=== PATIENT | male | born 2000 | race Caucasian/White ===

== ENCOUNTER 2021-09-07 23:17 | Emergency (ER) | payer OTHER ==
[2021-09-08] MEDS ORDERED: IBUPROFEN 600 MG TAB PO ONE (05:41)
[2021-09-08] MEDS ORDERED: LIDOCAINE-MPF (1%) 10 MG/1 ML VIAL 5 ML INFILTRATI ONE (05:41)
[2021-09-08] MEDS ORDERED: SULFAMETHOXAZOLE/TRIMETHOPRIM 800/160MG DS TAB PO ONE (05:41)
--- NOTE | 2021-09-08 06:44 | Emergency Department Report ---
ED General Adult HPI - General Chief complaint: Pain General Stated complaint: NIPPLE PIERCING COMPLICATIONS Source: patient Mode of arrival: Ambulatory Limitations: No Limitations - History of Present Illness Initial comments: Patient is a 20-year-old male with no past medical history presents to the ED with complaint of acute onset persistent pain. Mildly swollen mild erythematous maculopapular rash on left nipple due to the presence of an embedded metallic nipple ring that has been present for 4 months. Patient states that he tried to remove the nipple ring with no success, resulting in the presence of the metallic body still in the left). Patient states the pain the swelling is worsened. Patient denies fever, chills, nausea and vomiting, dizziness, syncope, chest pain or shortness of breath. MD Complaint: left nipple foreign body -: Gradual, month(s) (4) Location: chest (left breast nipple) Radiation: non-radiation Severity scale (0 -10): 9 Quality: aching, sharp Consistency: constant Improves with: none Worsens with: none Associated Symptoms: denies other symptoms, rash (Mild erythematous rash on the left nipple due to a metallic nipple ring stuck in the). denies: confusion, chest pain, cough, fever/chills, headaches, loss of appetite, malaise, nausea/vomiting, seizure, shortness of breath, syncope, weakness Treatments Prior to Arrival: none - Related Data Previous Rx's Medication Instructions Recorded Last Taken Type Ibuprofen [Motrin] 800 mg PO Q8HR PRN #30 tablet 09/08/21 Unknown Rx Sulfamethoxazole/Trimethoprim 1 each PO Q12H #20 tab 09/08/21 Unknown Rx [Bactrim DS TAB] Allergies Allergy/AdvReac Type Severity Reaction Status Date / Time No Known Allergies Allergy Unverified 09/08/21 00:07 ED Review of Systems ROS: Stated complaint: NIPPLE PIERCING COMPLICATIONS Other details as noted in HPI Constitutional: denies: chills, fever Eyes: denies: eye pain, eye discharge, vision change ENT: denies: ear pain, throat pain Respiratory: other (Left wrist pain due to a metallic foreign body embedded with swelling, purulent discharge). denies: cough, shortness of breath, wheezing Cardiovascular: denies: chest pain, palpitations Endocrine: no symptoms reported Gastrointestinal: denies: abdominal pain, nausea, vomiting, diarrhea Genitourinary: denies: urgency, dysuria Musculoskeletal: denies: back pain, joint swelling, arthralgia Skin: rash (Mild erythematous left nipple due to embedded metallic foreign body with purulent discharge), change in color. denies: lesions Neurological: denies: headache, weakness, paresthesias Psychiatric: denies: anxiety, depression Hematological/Lymphatic: denies: easy bleeding, easy bruising ED Past Medical Hx - Medications Home Medications: Home Medications Medication Instructions Recorded Confirmed Last Taken Type Ibuprofen [Motrin] 800 mg PO Q8HR PRN #30 tablet 09/08/21 Unknown Rx Sulfamethoxazole/Trimethoprim 1 each PO Q12H #20 tab 09/08/21 Unknown Rx [Bactrim DS TAB] ED Physical Exam - General Limitations: No Limitations General appearance: alert, in no apparent distress - Head Head exam: Present: atraumatic, normocephalic, normal inspection - Eye Eye exam: Present: normal appearance, PERRL, EOMI Pupils: Present: normal accommodation - ENT ENT exam: Present: normal exam, normal orophraynx, mucous membranes moist, TM's normal bilaterally, normal external ear exam - Neck Neck exam: Present: normal inspection, full ROM. Absent: tenderness - Respiratory Respiratory exam: Present: normal lung sounds bilaterally, chest wall tenderness (Palpable left nipple tenderness due to mild erythematous rash and purulent discharge due to a foreign metallic body embedded in the nipple). Absent: respiratory distress, wheezes, rales, stridor, accessory muscle use, decreased breath sounds, prolonged expiratory - Cardiovascular Cardiovascular Exam: Present: regular rate, normal rhythm, normal heart sounds. Absent: systolic murmur, diastolic murmur, rubs, gallop - GI/Abdominal GI/Abdominal exam: Present: soft, normal bowel sounds. Absent: distended, tenderness, guarding, rebound, hyperactive bowel sounds, hypoactive bowel sounds, organomegaly - Extremities Exam Extremities exam: Present: normal inspection, full ROM, normal capillary refill. Absent: tenderness - Back Exam Back exam: Present: normal inspection, full ROM. Absent: tenderness, CVA tenderness (R), CVA tenderness (L), muscle spasm, paraspinal tenderness - Neurological Exam Neurological exam: Present: alert, oriented X3, CN II-XII intact, normal gait, reflexes normal - Psychiatric Psychiatric exam: Present: normal affect, normal mood - Skin Skin exam: Present: warm, dry, intact, normal color, rash (Mildly erythematous maculopapular rash with purulent discharge on left nipple due to a metallic foreign body embedded in the left nipple), erythema ED Course Vital Signs 09/08/21 09/08/21 00:05 05:52 Temperature 98.6 F Pulse Rate 62 Respiratory 16 16 Rate Blood Pressure 137/87 [Right] O2 Sat by Pulse 99 Oximetry - Procedure Description Procedures done: Foreign body removal from left nipple: - The left nipple was cleaned extensively normal saline and Betadine solutions, and 1% lidocaine solution was used as a local anesthetic. When anesthesia was fully achieved, the foreign body was removed with tweezers and hemostats. Patient tolerated the procedure well. The wound was then cleaned with normal saline and dressed appropriately with 4 x 4 and Tegaderm. ED Medical Decision Making - Medical Decision Making This is a 20-year-old male with no past medical history presents to the ED with complaint of acute onset persistent pain. Mildly swollen mild erythematous maculopapular rash on left nipple due to the presence of an embedded metallic nipple ring that has been present for 4 months. Patient states that he tried to remove the nipple ring with no success, resulting in the presence of the metallic body still in the left). Patient states the pain the swelling is worsened. In the ED, patient is alert and oriented x3 and is not in any distress. Patient was treated for pain in the ED and also received initial oral antibiotics Bactrim DS. The left nipple was cleaned extensively normal saline and Betadine solutions, and 1% lidocaine solution was used as a local anesthetic. When anesthesia was fully achieved, the foreign body was removed with tweezers and hemostats. Patient tolerated the procedure well. The wound was then cleaned with normal saline and dressed appropriately with 4 x 4 and Tegaderm. Patient was discharged home on pain medications and antibiotics and advised to follow-up with primary care physician in 7 to 10 days for reevaluation. Patient is advised return to the ED immediately if symptoms get worse. - Differential Diagnosis Cellulitis; infected nipple; foreign body of left nipple Critical care attestation.: If time is entered above; I have spent that time in minutes in the direct care of this critically ill patient, excluding procedure time. ED Disposition Clinical Impression: Cellulitis of left breast, Foreign body of left breast with infection Disposition: 01 HOME / SELF CARE / HOMELESS Is pt being admited?: No Does the pt Need Aspirin: No Condition: Stable Instructions: Cellulitis, Adult, [id number], Skin Foreign Body Additional Instructions: Take medication with food, drink plenty of fluids and follow-up with your primary care physician in 7 to 10 days for reevaluation. Return to the ED immediately if symptoms get worse. Prescriptions: Sulfamethoxazole/Trimethoprim [Bactrim DS TAB] 1 each PO Q12H #20 tab Ibuprofen [Motrin] 800 mg PO Q8HR PRN #30 tablet PRN Reason: Pain , Severe (7-10) Referrals: [facility] [Provider Group] - 7-10 days Forms: Work/School Release Form(ED) Time of Disposition: 06:41 Print Language: SAMI
[2021-09-08 07:48] VITALS: BP 130/85
== END 2021-09-08 07:42 | disposition home or self-care (01) ==
LOC: ED 23:17
DX: S20.152A Superficial foreign body of breast, left breast, initial encounter (principal); N61.0 Mastitis without abscess; X58.XXXA Exposure to other specified factors, initial encounter; Y93.89 Activity, other specified; Y92.89 Other specified places as the place of occurrence of the external cause; Y99.8 Other external cause status
CPT/HCPCS: 99283; J3490